=== PATIENT | female | born 1995 | race Caucasian/White ===

== ENCOUNTER 2018-12-19 12:40 | Observation (INO) | payer OTHER ==
[~2018-12-19] VITALS: Ht 149.9 cm; Wt 55.0 kg
[2018-12-19] MEDS ORDERED: SODIUM CHLORIDE 0.9% 1000ML 1,000 ML IV STA (12:47)
[2018-12-19] MEDS ORDERED: ACETAMINOPHEN 325 MG TAB PO ONE (13:30)
[2018-12-19 13:46] LABS: BASOPHILS % 0.3 % (0.0-1.0); EOSINOPHILS # (AUTO) 0.1 (0.0-0.4); EOSINOPHILS % 0.6 % (0.0-6.0); HEMATOCRIT 37.3 % (34.2-44.1); HEMOGLOBIN 12.3 g/dL (12.0-16.0); LYMPHOCYTES # (AUTO) 1.8 (1.0-3.2); LYMPHOCYTES % 12.1 % (18.0-39.1); MEAN CORPUSCULAR HEMOGLOBIN 28.3 pg (28-32); MEAN CORPUSCULAR VOLUME 85.7 fL (81-99); MONOCYTES # (AUTO) 0.7 (0.2-0.8); MONOCYTES % 4.6 % (4.4-11.3); NEUTROPHILS # (AUTO) 12.1 (2.1-6.9); NEUTROPHILS % 81.7 % (38.7-80.0); PLATELET COUNT 463 x10e3/uL (140-360); RED BLOOD COUNT 4.35 x10e6/uL (3.6-5.1); RED CELL DISTRIBUTION WIDTH 13.4 % (11.7-14.4)
[2018-12-19 13:50] LABS: BILIRUBIN,URINE NEGATIVE (NEGATIVE); CLARITY,URINE SL CLOUDY (CLEAR); COLOR,URINE YELLOW (YELLOW); KETONES,URINE NEGATIVE (NEGATIVE); LEUKOCYTE ESTERASE ,URINE NEGATIVE (NEGATIVE); NITRITE,URINE NEGATIVE (NEGATIVE); PREGNANCY TEST, URINE NEGATIVE (NEGATIVE); PROTEIN,URINE DIPSTICK 2+ (NEGATIVE); URINE UROBILINOGEN 0.2 mg/dL (0.2 - 1)
[2018-12-19 13:58] LABS: AMPHETAMINES SCREEN,URINE POSITIVE (NEGATIVE); BENZODIAZEPINES SCREEN,URINE NEGATIVE (NEGATIVE); PHENCYCLIDINE SCREEN,URINE NEGATIVE (NEGATIVE)
[2018-12-19 14:01] LABS: ALANINE AMINOTRANSFERASE 22 IU/L (0-55); ALBUMIN 2.6 g/dL (3.5-5.0); ALBUMIN/GLOBULIN RATIO 0.9 (0.8-2.0); ALKALINE PHOSPHATASE 71 IU/L (40-150); ANION GAP 11.1 mmol/L (8-16); BLOOD UREA NITROGEN 11 mg/dL (7-26); BUN/CREATININE RATIO 19 (6-25); CARBON DIOXIDE 22 mmol/L (22-29); CHLORIDE 110 mmol/L (98-107); CREATINE KINASE 167 IU/L (29-168); CREATININE, SERUM 0.58 mg/dL (0.57-1.11); EST GLOMERULAR FILTRATION RATE > 60 ML/MIN (60-); GLUCOSE 79 mg/dL (74-118); POTASSIUM 4.1 mmol/L (3.5-5.1); SODIUM 139 mmol/L (136-145)
[2018-12-19 14:01] LABS: AMORPHOUS SEDIMENT,URINE MODERATE (FEW); BACTERIA,URINE MANY /HPF; EPITHELIAL CELLS,URINE MODERATE /LPF
--- NOTE | 2018-12-19 14:07 | Diagnostic Imaging Report ---
History: Loss of consciousness Comparison studies: None Technique: Axial images were obtained from the skull base to the vertex. Coronal and sagittal reconstructions obtained from the axial data. Dose modulation, iterative reconstruction, and/or weight based adjustment of the mA/kV was utilized to reduce the radiation dose to as low as reasonably achievable. Findings: Scalp/skull: No abnormalities. No fractures, blastic or lytic lesions. Extra-axial spaces: No masses. No fluid collections. Brain sulci: Appropriate for age. Ventricles: Normal in size and configuration. No hydrocephalus. Parenchyma: No abnormal densities. No masses, hemorrhage, acute or chronic cortical vascular insults. Sellar/suprasellar region: No abnormalities Craniocervical junction: Patent foramen magnum. No Chiari one malformation. Mild nonspecific mucosal thickening at the right sphenoid sinus. IMPRESSION: No intracranial abnormalities . Signed by: DR Guru House M.D. on 12/19/2018 2:04 PM
[2018-12-19 14:58] LABS: STREPTOCOCCUS GRP A ANTIGEN NEGATIVE (NEGATIVE)
[2018-12-19 15:07] LABS: INFLUENZAE A&B ANTIGEN (RAPID) NEGATIVE (NEGATIVE)
--- NOTE | 2018-12-19 15:19 | Diagnostic Imaging Report ---
EXAMINATION: CHEST SINGLE (PORTABLE) INDICATION: Seizure. COMPARISON: None FINDINGS: TUBES and LINES: None. LUNGS: Lungs are well inflated. Lungs are clear. There is no evidence of pneumonia or pulmonary edema. PLEURA: No pleural effusion or pneumothorax. HEART AND MEDIASTINUM: The cardiomediastinal silhouette is unremarkable. BONES AND SOFT TISSUES: No acute osseous lesion. Soft tissues are unremarkable. UPPER ABDOMEN: No free air under the diaphragm. IMPRESSION: No acute radiographic abnormality. Signed by: Dr. Caryn Mcmullen MD on 12/19/2018 3:15 PM
[2018-12-19] MEDS ORDERED: LEVETIRACETAM 500 MG TAB PO NR (16:00)
[2018-12-19] MEDS ORDERED: SODIUM CHLORIDE 0.9% 1000ML 1,000 ML IV SCH ×2 (16:15)
--- NOTE | 2018-12-19 17:04 | Diagnostic Imaging Report ---
CT CHEST WITH CONTRAST HISTORY: Seizure, tachycardia, rule out PE COMPARISON: Chest radiograph December 19, 2018. TECHNIQUE: CT scan of the chest WITH intravenous contrast, using PE protocol. The chest was scanned utilizing a multidetector helical scanner from the lung apex through the level of the adrenal glands. Thin section reconstructions were obtained with special concentration on the pulmonary arteries. IV CONTRAST: 100 cc of Isovue-370. PROTOCOL: PE RADIATION DOSE: Total DLP: 285.53 mGy*cm Dose modulation, iterative reconstruction, and/or weight based adjustment of the mA/kV was utilized to reduce the radiation dose to as low as reasonably achievable. COMPLICATIONS: None DISCUSSION: Lungs: No consolidative pneumonia or pulmonary edema. Vessels: No filling defects are identified within the pulmonary arteries to the segmental levels. Airways: The major airways are clear. Pleura: No effusion or pneumothorax. Heart and mediastinum: Unremarkable Abdomen: Limited evaluation of the upper abdomen. Small amount of focal fatty infiltration adjacent to the falciform ligament. Lymph nodes: No pathologically enlarged lymph node. Bones: No acute bone abnormality. Soft tissues: Unremarkable IMPRESSION: 1. No pulmonary embolus. 2. No acute CT abnormality. Signed by: Dr. Serafin Abebe D.O., M.M.M. on 12/19/2018 5:01 PM
[2018-12-19] MEDS ORDERED: MORPHINE SULFATE INJ 4 MG/ML INJ 1ML IV PRN (18:45)
[2018-12-19] MEDS ORDERED: ONDANSETRON HCL INJ 2MG/ML 2ML 2 MG/ML VIAL IV PRN (18:45)
--- OUTSIDE RECORDS SUMMARY | 2018-12-19 18:46 | XMS REPORT ---
Author [facility] Address Unknown Phone Unavailable Care Team Providers Care Wellness Specialist Name Role Phone JASPAL LOVETT Unavailable Unavailable Problems This patient has no known problems. Allergies, Adverse Reactions, Alerts This patient has no known allergies or adverse reactions. Medications This patient has no known medications. Results Test Description Test Time Test Comments Text Results Atomic Results Result Comments CT CHEST W 2018-12-19 16:55:00 [place] [address] Patient Name: RICHARD FERNANDO MR #: [id number] : 1995 Age/Sex: 23/F Req #: [id number] Adm Physician: Ordered by: JASPAL LOVETT COMMERCIAL SPECIALIST Report #: [id number] Location: ER Room/Bed: Procedure: [id number] CT/CT CHEST W Exam Date: 12/19/18 Exam Time: 1630 REPORT STATUS: Signed CT CHEST WITH CONTRAST HISTORY: Seizure, tachycardia, rule out PE COMPARISON: Chest radiograph December 19, 2018. TECHNIQUE: CT scan of the chest WITH intravenous contrast, using PE protocol. The chest was scanned utilizing a multidetector helical scanner from the lung apex through the level of the adrenal glands. Thin section reconstructions were obtained with special concentration on the pulmonary arteries. IV CONTRAST: 100 cc of Isovue-370. PROTOCOL: PE RADIATION DOSE: Total DLP: 285.53 mGy*cm Dose modulation, iterative reconstruction, and/or weight based adjustment of the mA/kV was utilized to reduce the radiation dose to as low as reasonably achievable. COMPLICATIONS: None DISCUSSION: Lungs: No consolidative pneumonia or pulmonary edema. Vessels: No filling defects are identified within the pulmonary arteries to the segmental levels. Airways: The major airways are clear. Pleura: No effusion or pneumothorax. Heart and mediastinum: Unremarkable Abdomen: Limited evaluation of the upper abdomen. Small amount of focal fatty infiltration adjacent to the falciform ligament. Lymph nodes: No pathologically enlarged lymph node. Bones: No acute bone abnormality. Soft tissues: Unremarkable IMPRESSION: 1. No pulmonary embolus. 2. No acute CT abnormality. Signed by: Dr. Lindsay Abebe D.O., M.M.M. on 12/19/2018 5:01 PM Dictated By: LINDSAY ABEBE DO 00 Transcribed By: RUBY on 12/19/181700 COPY TO: JASPAL LOVETT NP CHEST SINGLE (PORTABLE) 2018-12-19 15:14:00 [place] [address] Patient Name: RICHARD FERNANDO MR #: [id number] : 1995 Age/Sex: 23/F Req #: [id number] Adm Physician: Ordered by: JASPAL LOVETT NP Report #: [id number] Location: ER Room/Bed: Procedure: [id number] DX/CHEST SINGLE (PORTABLE) Exam Date: 12/19/18 Exam Time: 1330 REPORT STATUS: Signed EXAMINATION: CHEST SINGLE (PORTABLE) IN DICATION: Seizure. COMPARISON: None FINDINGS: TUBES and LINES: None. LUNGS: Lungs are well inflated. Lungs are clear. There is no evidence of pneumonia or pulmonary edema. PLEURA: No pleural effusion or pneumothorax. HEART AND MEDIASTINUM: The cardiomediastinal silhouette is unremarkable. BONES AND SOFT TISSUES: No acute osseous lesion. Soft tissues are unremarkable. UPPER ABDOMEN: No free air under the diaphragm. IMPRESSION: No acute radiographic abnormality. Signed by: Dr. Tiffany Mcnulty MD on 12/19/2018 3:15 PM Dictated By: TIFFANY MCNULTY MD 14 Transcribed By: RUBY on 12/19/18 1510 COPY TO: JASPAL LOVETT NP CT BRAIN WO 2018-12-19 14:01:00 [place] [address] Patient Name: RICHARD FERNANDO MR #: [id number] : 1995 Age/Sex: 23/F Req #: [id number] Adm Physician: Ordered by: JASPAL LOVETT COMMERCIAL SPECIALIST Report #: [id number] Location: ER Room/Bed: Procedure: [id number] CT/CT BRAIN WO Exam Date: 12/19/18 Exam Time: 1330 REPORT STATUS: Signed History: Loss of consciousness Comparison studies: None Technique: Axial images were obtained from the skull base to the vertex. Coronal and sagittal reconstructions obtained from the axial data. Dose modulation, iterative reconstruction, and/or weight based adjustment of the mA/kV was utilized to reduce the radiation dose to as low as reasonably achievable. Findings: Scalp/skull: No abnormalities. No fractures, blastic or lytic lesions. Extra-axial spaces: No masses. No fluid collections. Brain sulci: Appropriate for age. Ventricles: Normal in size and configuration. No hydrocephalus. Parenchyma: No abnormal densities. No masses, hemorrhage, acute or chronic cortical vascular insults. Sellar/suprasellar region: No abnormalities Craniocervical junction: Patent foramen magnum. No Chiari one malformation. Mild nonspecific mucosal thickening at the right sphenoid sinus. IMPRESSION: No intracranial abnormalities . Signed by: DR Guru House M.D. on 12/19/2018 2:04 PM Dictated By: GURU WYNN MD 1404 Transcribed By: RUBY on 12/19/18 1406 COPY TO: JASPAL LOVETT NP
[2018-12-19] MEDS ORDERED: ADDERALL XR 2525 MG PO (18:47)
[2018-12-19] MEDS ORDERED: BUPROPION XL300 MG PO (18:47)
[2018-12-19] MEDS ORDERED: FLUOXETINE HCL40 MG PO (18:47)
[2018-12-19] MEDS ORDERED: QUETIAPINE FUM100 MG PO (18:47)
[2018-12-19] MEDS ORDERED: AMPHETAMINE SAL15 MG PO (18:47)
[2018-12-19] MEDS: SODIUM CHLORIDE 0.9% 1000ML 1,000 ML IV SCH (19:11)
[2018-12-19] MEDS ORDERED: IOPAMIDOL 370 MG/ML 200 ML INFUS..BTL INJ ONE ×2 (19:25→21:03)
[2018-12-19] MEDS ORDERED: SODIUM CHLORIDE 0.9% 50ML 0 ML ONE (19:25)
[2018-12-19] MEDS ORDERED: SODIUM CHLORIDE 0.9% 50ML 50 ML ONE (21:03)
[2018-12-20] MEDS: SODIUM CHLORIDE 0.9% 1000ML 1,000 ML IV SCH (02:12)
[2018-12-20 05:23] LABS: BASOPHILS % 0.3 % (0.0-1.0); EOSINOPHILS # (AUTO) 0.2 (0.0-0.4); EOSINOPHILS % 1.5 % (0.0-6.0); HEMATOCRIT 29.9 % (34.2-44.1); LYMPHOCYTES # (AUTO) 3.9 (1.0-3.2); LYMPHOCYTES % 38.5 % (18.0-39.1); MEAN CORPUSCULAR HEMOGLOBIN 29.1 pg (28-32); MEAN CORPUSCULAR HGB CONC 33.4 g/dL (31-35); MEAN CORPUSCULAR VOLUME 86.9 fL (81-99); MONOCYTES # (AUTO) 0.9 (0.2-0.8); MONOCYTES % 8.9 % (4.4-11.3); NEUTROPHILS # (AUTO) 5.1 (2.1-6.9); NEUTROPHILS % 50.4 % (38.7-80.0); PLATELET COUNT 331 x10e3/uL (140-360); RED BLOOD COUNT 3.44 x10e6/uL (3.6-5.1); RED CELL DISTRIBUTION WIDTH 13.7 % (11.7-14.4)
[2018-12-20 05:35] LABS: ALANINE AMINOTRANSFERASE 18 IU/L (0-55); ALBUMIN 1.7 g/dL (3.5-5.0); ALBUMIN/GLOBULIN RATIO 0.8 (0.8-2.0); ALKALINE PHOSPHATASE 50 IU/L (40-150); ANION GAP 7.4 mmol/L (8-16); BLOOD UREA NITROGEN 5 mg/dL (7-26); BUN/CREATININE RATIO 11 (6-25); CARBON DIOXIDE 19 mmol/L (22-29); CHLORIDE 117 mmol/L (98-107); CREATININE, SERUM 0.45 mg/dL (0.57-1.11); EST GLOMERULAR FILTRATION RATE > 60 ML/MIN (60-); GLUCOSE 73 mg/dL (74-118); POTASSIUM 3.4 mmol/L (3.5-5.1); SODIUM 140 mmol/L (136-145)
[2018-12-20 05:53] LABS: CALCIUM 6.8 mg/dL (8.4-10.2)
--- NOTE | 2018-12-20 06:51 | NUR ---
RECEIVED REPORT FROM OFF GOING NURSE. PATIENT IN ROOM IN HOSPITAL BED. NO S/S OF ACUTE DISTRESS. RESP EVEN AND NON-LABORED. PENDING ROOM ASSIGNMENT. BED DOWN CALL LIGHT IN REACH, WILL CONTINUE TO MONITOR.
[2018-12-20] MEDS: QUETIAPINE FUMARATE 100 MG TAB PO SCH (09:00)
[2018-12-20] MEDS: D AMPHET PO SCH ×2 (09:00→21:00)
[2018-12-20] MEDS: AMPHET PO SCH ×2 (09:00→21:00)
[2018-12-20] MEDS: FLUOXETINE HCL 20 MG CAP PO SCH (09:00)
[2018-12-20] MEDS: AMPHET ASP PO SCH ×2 (09:00→21:00)
[2018-12-20] MEDS: BUPROPION HCL 150 MG TABCR PO SCH (09:00)
[2018-12-20 10:16] LABS: FOLATE 12.2 ng/mL (7.0-15.4)
--- NOTE | 2018-12-20 11:42 | Diagnostic Imaging Report ---
History: New onset seizure Comparison studies: Head CT 12/19/2018 Technique: Brain: Sagittal and axial T2 FS, axial T2*GRE, axial T2 FLAIR, axial T1 and axial DWI as well as dedicated thin partition coronal T2 and T2 FLAIR sequences through the temporal lobes. Intracranial MRA: Axial 3-D [id number] with coronal, sagittal and 3-D MIP reformats. Intravenous contrast: None Findings: Brain: Scalp: No abnormal signal. No masses. Bone marrow: Normal in signal intensity. Brain sulci: Mildly prominent . Ventricles: Normal in size. No hydrocephalus. Extra-axial spaces: No mass, no fluid collection. Parenchyma: No abnormal signal intensities. No mass, hemorrhage or acute or chronic ischemic insults. The hippocampi, forniceal columns and mamillary bodies are symmetric in size and signal intensity. No gross abnormalities of cortical development/cortical migration identified however, evaluation for these abnormalities are somewhat limited in the absence of a high resolution 3-D T1 sequence. Suprasellar region: No abnormalities. Craniocervical junction: No abnormalities. The foramen magnum is patent. No Chiari malformations. Vessels: Normal flow-voids in the arteries and sinuses. Paranasal sinuses: Nonspecific left frontoethmoidal, right posterior ethmoids and right sphenoid sinus mucosal thickening.. Intracranial MRA: No aneurysm or arterial vascular malformation identified. Interior circulation: Internal carotid arteries: Patent, no flow signal abnormalities. Anterior cerebral arteries: Patent, no proximal branch occlusion or stenosis. Middle cerebral arteries: Patent, no proximal branch occlusion or stenosis. Posterior circulation: Included segments of the vertebral arteries: Patent, no abnormalities. Basilar artery: Patent, no flow signal abnormalities. Posterior cerebral arteries: Patent, no proximal branch occlusion or stenosis. The right P1 segment are mildly hypoplastic and there prominent and there are prominent bilateral posterior to indicating arteries. Anatomical variants: Acom: Patent. Pcom: Patent bilaterally. Vertebral arteries: Codominant. IMPRESSION: Brain MRI: 1. No intracranial abnormalities. 2. Specifically, no mass, mesial temporal sclerosis or gross abnormality cortical development/cortical migration identified. Intracranial MRA: No abnormalities. Signed by: Dr. Thuan Manuel M.D. on 12/20/2018 11:38 AM
[2018-12-20 16:00] VITALS: BP 135/91
--- NOTE | 2018-12-20 16:00 | NUR ---
pt arrived to unit via stretcher, no distress noted at this time. pt able to make needs known, pt oriented to room and call light, pt has no complaints at this time. bed in lowest position, bed rails up x2, call light in reach.
--- NOTE | 2018-12-20 16:31 | Electroencephalogram ---
DATE OF STUDY: December 20, 2018 REQUESTING PHYSICIAN: Dr. Prudence Ceballos. PATIENT HISTORY: This 23-year-old woman with a history of possible new-onset seizure is having an EEG for evaluation of epileptiform activity. The patient is not taking any medication which might affect the EEG. TECHNIQUE: This is a routine, portable EEG, recorded digitally using the International 10-20 Electrode Placement System and done in the inpatient setting. The EEG is technically limited because of muscle and electrical artifact. INTERPRETATION: This study cannot be interpreted due to excessive electrical and motion artifact. A repeat electroencephalogram will be performed once the patient is on the floor. Job#: [id number] MTDD
--- NOTE | 2018-12-20 17:29 | Consultation ---
DATE OF CONSULTATION: December 20, 2018 NEUROLOGY CONSULT NOTE HISTORY OF PRESENT ILLNESS: Ms. Kovacs is a 23-year-old right hand dominant woman with past medical history significant for hypertension, systemic lupus erythematosus with lupus nephritis, ADHD and depression, admitted to [facility] on December 19, 2018, with possible new onset seizure. In the early afternoon of December 19, 2018, the patient was at work when she experienced a twitch or jerk of her left hand. Following this twitch or jerk, Ms. Kovacs continued to work at her computer for an additional 2 to 3 minutes. As the patient was rising from her seat to go to lunch, she suddenly fell to the floor. The next memory Ms. Kovacs has is lying on the floor near her desk with her boss and paramedics standing over her and asking her questions. According to what Ms. Kovacs and her mother were told, when the patient dropped to the floor, she did not lose consciousness. If she did, it was very brief. There was no witnessed stiffening or shaking of extremities. There was no tongue biting, bladder/bowel incontinence, foaming saliva, or vomiting. Immediately after falling to the floor, the patient's boss came to her side. As she asked Ms. Kovacs questions, the patient would respond, but her responses were inappropriate. According to the patient, it was several hours before she returned to her baseline neurological function. Ms. Kovacs does not report experiencing similar symptoms previously. She does not report a history of febrile seizures. There is no known family history of seizure disorder, but the patient is adopted. Ms. Kovacs has witnessed a seizure previously. This occurred while running the [employer]. Ms. Kovacs witnessed a man collapse in front of her and to have a seizure. The patient does not report a prior history of head trauma or meningitis/encephalitis. 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 Due to her busy schedule, she does not sleep "as much as I should." The patient reports worsening psychosocial stress for the past several months, but this has recently resolved. The patient does not report a recent increase in the dose of amphetamine. The patient does not report recent sudden cessation of alcohol or benzodiazepine use. REVIEW OF SYSTEMS: Confusion, seizure. Otherwise the 12-point review of systems is negative. PAST MEDICAL HISTORY: Hypertension, systemic lupus erythematosus with lupus nephritis, ADHD, depression. PAST SURGICAL HISTORY: None. FAMILY MEDICAL HISTORY: Ms. Kovacs was adopted. Her family medical history is unknown. PAST HOSPITALIZATIONS: Renal biopsy. SOCIAL HISTORY: The patient is single. She works for a [employer] company. The patient does not report current or prior tobacco or recreational drug use. The patient reports moderate alcohol consumption. HOME MEDICATIONS 1. Amphetamine salts 15 mg by mouth at bedtime daily. 2. Adderall XR 25 mg by mouth daily. 3. Bupropion 300 mg by mouth daily. 4. Fluoxetine 80 mg by mouth daily. 5. Quetiapine 100 mg by mouth daily. ALLERGIES: NO KNOWN DRUG ALLERGIES. NO KNOWN FOOD ALLERGIES. NO KNOWN ALLERGIES TO LATEX. NO KNOWN ALLERGIES TO IODINE OR OTHER CONTRAST MATERIALS. PHYSICAL EXAMINATION VITAL SIGNS: Height 59 inches, weight 105 pounds, BMI 21.2 kg per meter squared, blood pressure 125/92 mmHg, pulse 100 beats per minute, respiratory rate 18 breaths per minute, oxygen saturation 100% on room air. GENERAL: The patient is awake and alert. Does not appear distressed. HEENT: Normocephalic, atraumatic. Pupils are equal, round and reactive to light. Moist mucous membranes. NECK: Supple. No appreciable thyromegaly. No appreciable carotid bruits. CARDIOVASCULAR: S1, S2, regular rate and rhythm. No murmurs, rubs, or gallops. RESPIRATORY: Clear to auscultation bilaterally. No wheezes, rhonchi, or rales. EXTREMITIES: The skin is warm and dry. No clubbing, cyanosis, or edema. The posterior tibial and dorsalis pedis pulses are 2+ and symmetric. SKIN: No rashes or lesions. NEUROLOGIC Memory/Attention: The patient is awake and alert. Oriented to person, place, time, and situation. Cranial Nerves: Cranial nerve I--not tested. Cranial nerve II, III, IV, and --pupils are equal and round, react briskly to light (from 4 mm to 2 mm). Extraocular movements intact. No nystagmus. Cranial nerve V--sensation to light touch and pinprick is intact in the bilateral V1 through V3 distributions. Strength of the temporalis and masseter muscles is within normal limits. Cranial nerve VII--the face is symmetric as are all facial movements. Strength is within normal limits. Cranial nerve VIII--hearing is intact to finger rub bilaterally. Cranial nerve IX, X--the soft palate elevates equally and symmetrically. Cranial nerve XI--normal strength of the bilateral sternocleidomastoid and trapezius muscles. Cranial nerve XII--the tongue protrudes midline and moves symmetrically from side to side. Strength: Bulk is normal. Strength is 5/5 in the bilateral deltoids, biceps, triceps, wrist flexors and extensors, finger flexors and extensors, intrinsic hand muscles, hip flexors, knee flexors and extensors, ankle dorsiflexion and plantarflexion, and intrinsic foot muscles. Tone is normal. DTRs: Deep tendon reflexes are 2+ and symmetric at the triceps, biceps, brachioradialis, patellas, and Achilles. Plantar responses are flexor bilaterally. Sensation: Sensation is intact to light touch and pinprick in both arms and both legs. Cerebellar: Zdwpln-xxqi-agijpt and heel-noriega movements are intact without dysmetria or other impairment. Gait: Deferred. Speech: Spontaneous speech is normal without appreciable dysarthria or aphasia. Repetition is intact. Involuntary Movements: None. Pronator Drift: None. LABORATORY DATA: The most recent comprehensive metabolic panel is significant for a potassium of 3.4, chloride of 117, carbon dioxide of 19, anion gap of 7.4, BUN of 5, creatinine of 0.45, glucose of 73, calcium of 6.8, total bilirubin of 0.1, total protein of 3.8, albumin of 1.7, and globulin of 2.1. Cardiac enzymes are negative x1. Vitamin B12 338. Folate 12.2. TSH 1.114. The CBC with differential and platelets reveals a white blood cell count of 10.09 with a normal differential. The hemoglobin and hematocrit are 10.0 and 29.9, respectively. The platelet count is 331. A urinalysis is significant for specific gravity of 1.030, 2+ protein, 2+ blood, 11 to 20 red blood cells, 6 to 10 white blood cells, moderate urine epithelials cells, moderate amorphous sediment, and many urine bacteria. A urine test is negative. Blood alcohol level was less than 10.0. A urine drug screen is positive for amphetamines. Influenza types A and B antigen negative. Group A streptococcus screen negative. A throat culture collected on 12/19/2018 grew usual respiratory mary. DIAGNOSTIC STUDIES Electrocardiogram 12/19/2018: Sinus tachycardia at 103 beats per minute. Chest x-ray 12/19/2018: No acute radiographic abnormality. CT of the brain without contrast 12/19/2018: On my review, there is no evidence of recent large territorial ischemia, hemorrhage, mass, or mass effect. Cerebral volumes are appropriate for age. There are no findings suggestive of chronic small vessel ischemic disease. CT of the chest 12/19/2018 1. No pulmonary embolus. 2. No acute CT abnormality. MRI of the brain without contrast 12/20/2018: On my review, there is no evidence of recent or remote large territorial ischemia, hemorrhage, mass, or mass effect. Cerebral volumes are appropriate for age. There is no evidence of migrational anomalies. There is no evidence of mesial temporal sclerosis. There are no findings suggestive of chronic small vessel ischemic disease. MRA of the brain 12/20/2018: Unremarkable. ASSESSMENTS AND PLANS: Ms. Kovacs is a 23-year-old right hand dominant woman with past medical history as detailed, admitted to [facility] on December 19, 2018, with possible new onset seizure. The patient's neurological examination is nonfocal. Her laboratory data and other diagnostic studies have been reviewed and are documented above. As detailed previously, there are no findings on the patient's MRI of the brain without contrast which would predispose the patient towards seizures. An electroencephalogram was performed. Unfortunately, there was excessive motion and electrical artifact making the study unreadable. RECOMMENDATIONS 1. A repeat EEG will be ordered once the patient is on the floor. As stated above, the first EEG could not be interpreted secondary to excessive electrical motion artifact. 2. Defer treatment of the remaining medical comorbidities to the primary and other services following the patient. Thank you for this consultation. I will continue to follow the patient while she remains in the hospital. TIME SPENT: 70 minutes. Job#: [id number] ARISTEO DEJESUS
--- NOTE | 2018-12-20 19:18 | NUR ---
report given to oncoming nurse for continued care.
[2018-12-20 19:59] VITALS: BP 135/81
--- NOTE | 2018-12-20 20:19 | History and Physical ---
PRIMARY CARE PHYSICIAN: Dr. Que Canas (sp?) CONSULTING: Dr. Prudence Ceballos CHIEF COMPLAINT: Status post seizure. Possible new-onset seizure. SUMMARY: This is a 23-year-old female, at work apparently had first left hand twitching. Patient noticed that next thing she knew she fell to the ground. When she woke up, she could not remember. Per witness, the patient may have some sort of seizure activity. The patient could not remember what actually happened. She woke up per witness that she was confused. Patient did not have any obvious injury. No urinary incontinence. No tongue biting. No other injury overall. The patient does have multiple chronic medical problems. She is on medication for quite sometime including Adderall, Celexa, and Prozac. At baseline, she does have depression and ADHD. Patient was stable. She is under good care. Very well family support and also seeing her medical doctor for the treatment. She had no previous problem with her medication. PAST MEDICAL HISTORY: ADHD, depression, and anxiety disorder. PAST SURGICAL HISTORY: Noncontributory. SOCIAL HISTORY: Patient does not smoke or use alcohol. No recreational drug use. ALLERGIES: NO KNOWN ALLERGY. HOME MEDICATIONS: Adderall, Celexa, Prozac, and Seroquel. PHYSICAL EXAMINATION: VITAL SIGNS: Temperature is 98, blood pressure 110/62, pulse rate is 80, respirations 18. GENERAL: The patient is not in acute distress. She is awake. No head injury. HEENT: Normocephalic, atraumatic. Sclerae anicteric. NECK: Supple grossly. PULMONARY: Clear. CARDIOVASCULAR: Regular rate and rhythm. ABDOMEN: Soft and unremarkable. Nontender. No distention. EXTREMITIES: No gross cyanosis or edema. NEUROLOGIC: No gross focal deficit. LABORATORY: Sodium is 140, potassium 3.4, chloride 117, bicarb 19, BUN is 5, creatinine 0.5, glucose 73. WBC is 10, hemoglobin 10, hematocrit 29.9, platelets is 131,000. CT of the chest and brain are negative. Chest x-ray unremarkable. IMPRESSION: 1. Possible new-onset seizure with loss of consciousness, witnessed by co-workers. 2. Multiple chronic stable psychiatric problems including attention deficit hyperactivity disorder, depression, and anxiety disorder. PLAN: Consultation with Dr. Prudence Ceballos. MRI and MRA of the brain. The patient will need seizure workup. Will follow up with Dr. Ceballos on her recommendation. Job#: [id number]
[2018-12-20 21:45] VITALS: BP 135/81
[2018-12-21] VITALS (9 sets, daily range): BP systolic 112–151; BP diastolic 54–99
--- NOTE | 2018-12-21 07:21 | NUR ---
REPORT GIVEN TO ONCOMING NURSE,WALKING ROUNDS MADE.PT RESTING IN BED WITH NO S/S OF DISTRESS.
--- NOTE | 2018-12-21 07:25 | NUR ---
PT RECEIVED FROM OUT GOING NURSE, JULIA, IN BED RELAXING, NO DISTRESS NOTED.
[2018-12-21] MEDS: QUETIAPINE FUMARATE 100 MG TAB PO SCH (08:10)
[2018-12-21] MEDS: FLUOXETINE HCL 20 MG CAP PO SCH (08:10)
[2018-12-21] MEDS: BUPROPION HCL 150 MG TABCR PO SCH (08:11)
[2018-12-21] MEDS ORDERED: NON-FORMULARY MEDICATION (Bupropion Hcl (Bupropion Xl) 300 MG) PO SCH (09:00)
[2018-12-21] MEDS ORDERED: FLUOXETINE HCL 80 MG PO SCH (09:00)
[2018-12-21] MEDS ORDERED: MORPHINE SULFATE INJ 4 MG/ML INJ 1ML IV PRN (12:15)
--- NOTE | 2018-12-21 12:25 | NUR ---
[employer] NOTIFIED THIS SECTION GANG OF PT SHAKINESS. PT IN ROOM WITH MOTHER, AND UPON ASSESSMENT PT TOLD THIS NURSE THAT SHE HAS TAKEN HER HOME MEDICATIONS PRIOR TO AM MEDS GIVEN AT 0810 BUT NEVER LET THIS NURSE TO KNOW. SHE TOLD THE MOTHER , THIS NURSE DID EXPLAINED ALL THE MEDICATIONS TO HER WITH THE SIDE EFFECTS PRIOR TO TAKING IT BUT SHE WAS NOT PAYING ATTENTION. MOTHER WAS FURIOUS. VITALS WNL.
--- NOTE | 2018-12-21 12:34 | NUR ---
DR SOLIS NOTIFIED OF THE PT DOUBLE DOSAGE IN AM MEDS. HE SAID THE CHARGED BE NOTIFIED AND NO NEW ORDERS AT MOMENT.
--- NOTE | 2018-12-21 12:50 | NUR ---
BEAD WIRE TAPER, CHARGED NURSE AND SALES REPRESENTATIVE [employer] NOTIFIED, THE SALES REPRESENTATIVE [employer] ACCOMPANIED BY NURSE WENT INTO ROOM AND SHE EXPLAINED TO PT AND MOTHER NOT TO HAVE HOME MEDS IN ROOM WITH PT, EITHER TAKE IT BACK HOME OR WE CAN KEEP IN THE PHARMACY UNTIL WHEN PT IS READY TO D/C. EDUCATION WAS GIVEN AND BOTH VERBALIZES UNDERSTANDING, AND AT THAT MOMENT THE PT STARTED HAVING SEIZURES THAT LASTED FOR ABOUT 1 TO 2 MINUTES, AND RAPID RESPONSE WAS CALLED.
--- NOTE | 2018-12-21 13:17 | NUR ---
Notified Dr. Prieto at this time. Left message regarding rapid response and patient having seizure. No new orders at this time.
[2018-12-21] MEDS ORDERED: SODIUM CHLORIDE 0.9% 1000ML 1,000 ML ONE (13:21)
--- NOTE | 2018-12-21 13:28 | NUR ---
ASSESSMENT: Spiritual concern Nat Instructor responded to Rapid Response. Pt's mother in hallway. Intervention: Provided calming presence and empathic listening. Provided prayer. Outcome: Will follow as able. [facility]ATEL[facility] Spiritual Care Department O: [phone] Pager: [phone] ([phone] number calling from)
--- NOTE | 2018-12-21 13:50 | NUR ---
SOON BED IS AVAILABLE.
--- NOTE | 2018-12-21 13:52 | NUR ---
PT IN BED AAOX4, AM MEDICATIONS EXPLAINED PLUS SIDE EFFECTS, ADMINISTERED AND PT VERBALIZES UNDERSTANDING. Addendum: 12/21/18 at 1357 by Holli Campbell RN MEDICATIONS GIVEN AT 0810.
--- NOTE | 2018-12-21 13:55 | NUR ---
PT IN BED WITH PADDED SIDE RAILS, AA0X4 , VISITING WITH FAMILY, DENIES PAIN OR DISCOMFORT. TELE MONITOR INPLACE AND PT TO BE TRANSFERRED TO [facility] SOON BED IS AVAILABLE. N/S 0.9 BOLUS RUNNING. WILL CONTINUE TO MONITOR.
[2018-12-21] MEDS: LAMOTRIGINE 100 MG TAB PO SCH ×2 (16:10→17:51)
--- NOTE | 2018-12-21 16:12 | Electroencephalogram ---
DATE OF STUDY: December 21, 2018 REQUESTING PHYSICIAN: Dr. Prudence Ceballos. PATIENT HISTORY: This 23-year-old woman with new-onset seizure is having an EEG for evaluation of epileptiform activity. The patient is not taking any medications that might affect the EEG. TECHNIQUE: This is a routine, portable EEG, recorded digitally using the International 10-20 Electrode Placement System and done in the inpatient setting with the patient awake. The EEG is adequate for interpretation. DESCRIPTION: Well-organized, well-sustained, 9-10 Hz activity is best seen symmetrically over the posterior head regions. Occasional spike, slow-wave discharges are seen originating from the right frontal region. No electrographic seizures are recorded. Sleep is not recorded. Photic stimulation does produce a driving response. Hyperventilation does produce slowing. INTERPRETATION: This EEG is abnormal due to the presence of occasional epileptiform discharges arising from the right frontal region. Clinical correlation is recommended. Job#: [id number]
--- NOTE | 2018-12-21 17:51 | NUR ---
PT IN BED WITH FAMILY IN ROOM. SEEN BY DR. MATHEW , MEDS GIVEN A/O. DENIES DISCOMFORT AT MOMENT. NO DISTRESS NOTED. V/S WNL.
--- NOTE | 2018-12-21 19:30 | NUR ---
patient received. Patient is resting in bed. Resp even and unlabored. No acute distress noted. Patient denies of any pain or discomfort. tele in place. family at bed time. call light within reach. instruct to call for assistance. bed low/locked. continue to monitor closely
[2018-12-21] MEDS: AMPHET ASP PO SCH (20:50)
[2018-12-21] MEDS: AMPHET PO SCH (20:50)
[2018-12-21] MEDS: D AMPHET PO SCH (20:50)
[2018-12-22] VITALS: BP 143/97
[2018-12-22 00:53] VITALS: BP 131/82
[2018-12-22 06:10] VITALS: BP 126/76
[2018-12-22 06:37] LABS: ANION GAP 10.7 mmol/L (8-16); BLOOD UREA NITROGEN 6 mg/dL (7-26); BUN/CREATININE RATIO 12 (6-25); CARBON DIOXIDE 23 mmol/L (22-29); CHLORIDE 111 mmol/L (98-107); CREATININE, SERUM 0.51 mg/dL (0.57-1.11); EST GLOMERULAR FILTRATION RATE > 60 ML/MIN (60-); GLUCOSE 78 mg/dL (74-118); POTASSIUM 3.7 mmol/L (3.5-5.1); SODIUM 141 mmol/L (136-145)
[2018-12-22 06:39] LABS: CALCIUM 8.2 mg/dL (8.4-10.2)
[2018-12-22 08:00] VITALS: BP 135/63
[2018-12-22] MEDS: BUPROPION HCL 150 MG TABCR PO SCH (08:08)
[2018-12-22] MEDS: QUETIAPINE FUMARATE 100 MG TAB PO SCH (08:08)
[2018-12-22] MEDS: FLUOXETINE HCL 20 MG CAP PO SCH (08:08)
[2018-12-22] MEDS: LAMOTRIGINE 100 MG TAB PO SCH (08:08)
[2018-12-22] MEDS: AMPHET ASP PO SCH (08:09)
[2018-12-22] MEDS: D AMPHET PO SCH (08:09)
[2018-12-22] MEDS: AMPHET PO SCH (08:09)
--- NOTE | 2018-12-22 08:10 | NUR ---
PT AA0X4, SITTING AT SIDE OF BED HAVING BREAKFAST AND WATCHING TV. PT STATED SHE HAS NOT TAKEN ANY HOME MEDICATIONS AND MOTHER TOOK THE MEDICATIONS BACK HOME YESTERDAY. AM MEDS ADMINISTERED WITH SIDE EFFECTS EXPLAINED AND PT VERBALIZES UNDERSTANDING.
--- NOTE | 2018-12-22 10:48 | NUR ---
PT DISCHARGED HOME WITH PRESCRIPTIONS AND DISCHARGED PAPERS. IV TAKEN OUT SITE LOOKS CLEAN, NO REDNESS OR SWELLING NOTED. TRANSPORTED VIA W/C OFF UNIT ACCOMPANIED BY STAFF TO MUM CAR. PATIENT AND MOTHER VERBALIZES UNDERSTANDING OF DISCHARGED INSTRUCTIONS.
== END 2018-12-22 10:08 | disposition home or self-care (01) ==
LOC: ER 12:40 → ERHOLD 18:43 → MED/SURG2 12-20 15:49
PROVIDERS: ADMIT Internal Medicine; ATTEND Internal Medicine
DX: R55 Syncope and collapse (principal); F41.9 Anxiety disorder, unspecified; F90.9 Attention-deficit hyperactivity disorder, unspecified type; M32.9 Systemic lupus erythematosus, unspecified
CPT/HCPCS: 36415 ×3; 70450; 70544; 70551; 71045; 71260; 80048; 80053 ×2; 80307; 80320; 81001; 81025; 82550; 82553; 82607; 82746; 82948; 83518; 84443; 84484; 85025 ×2; 87070; 87400; 93005 ×2; 95816; 99285; G0378 ×4; J7030 ×3; Q9967; 95812